=== PATIENT | male | born 1950 | race Caucasian/White ===

== ENCOUNTER 2019-01-09 13:51 | Inpatient (IN) | payer BC, MEDICARE ==
[2019-01-04 11:35] LABS: BASOPHILS % (AUTO) 0.4 % (0-1); EOSINOPHILS # (AUTO) 0.4 X10'3 (0-0.9); EOSINOPHILS % (AUTO) 7.1 % (0-6); HEMATOCRIT 44.4 % (42.0-52.0); HEMOGLOBIN 15.2 g/dl (14.0-17.9); LYMPHOCYTES # (AUTO) 0.9 X10'3 (1.1-4.8); LYMPHOCYTES % (AUTO) 17.5 % (21-51); MEAN CORPUSCULAR HEMOGLOBIN 28.1 PG (27.0-31.0); MEAN CORPUSCULAR HGB CONC 34.2 g/dL (33.0-36.5); MEAN CORPUSCULAR VOLUME 82.3 FL (78-98); MEAN PLATELET VOLUME 7.7 FL (7.4-10.4); MONOCYTES # (AUTO) 0.6 X10'3 (0-0.9); MONOCYTES % (AUTO) 11.5 % (2-12); NEUTROPHILS # (AUTO) 3.2 X10'3 (1.8-7.7); NEUTROPHILS % (AUTO) 63.5 % (42-75); PLATELET COUNT 175 X10'3 (140-440); WHITE BLOOD COUNT 5.1 X10'3 (4.5-11.0)
[2019-01-04 11:40] LABS: ALBUMIN 3.8 G/DL (3.4-5.0); ANION GAP 7 (8-16); BLOOD UREA NITROGEN 11 MG/DL (7-18); BUN/CREATININE RATIO 13.9 (5.4-32.0); CHLORIDE 107 MMOL/L (99-107); CREATININE 0.79 MG/DL (0.60-1.10); GLUCOSE 92 MG/DL (70-104); POTASSIUM 4.3 MMOL/L (3.5-5.1); SODIUM 142 MMOL/L (135-145); TOTAL CARBON DIOXIDE 28.4 MMOL/L (24-32); eGFR > 90 ML/MIN
[2019-01-04 11:51] LABS: PARTIAL THROMBOPLASTIN TIME 33 SECONDS (22-32)
[2019-01-09] VITALS (10 sets, daily range): BP systolic 138–172; BP diastolic 56–97
[~2019-01-09] VITALS: Ht 175.3 cm; Wt 97.0 kg
[~2019-01-09 13:51] MED LIST: AMLO10TA PO; ESOM20CA PO; LOSA100T57 PO; MONT10TA24 PO
[2019-01-09] MEDS ORDERED: LORazepam 0.5 MG tablet PO ONE (14:15)
[2019-01-09] MEDS ORDERED: diphenhydrAMINE 25mg capsule PO ONE (14:15)
[2019-01-09] MEDS ORDERED: ASPI81TA52 PO (14:32)
[2019-01-09] MEDS ORDERED: METO50TA17 PO (14:34)
[2019-01-09] MEDS ORDERED: METO-384 PO (14:35)
[2019-01-09] MEDS: normal saline 1000ml 1,000 ML IV SCH ×2 (15:19→21:37)
[2019-01-09] MEDS ORDERED: LIDOcaine 1% (10mg/ml)w/preservative injection 20ml MDV ONE (16:04)
[2019-01-09] MEDS ORDERED: midazolam 2 mg/2 ml injection ONE (16:04)
[2019-01-09] MEDS ORDERED: fentaNYL/PF 50MCG/1 ML 2ML syringe ONE (16:04)
[2019-01-09] MEDS ORDERED: iohexol 350MG/ML 100ml bottle IV ONE (16:04)
[2019-01-09] MEDS ORDERED: mag hydrox/Alum hydrox/simeth 30ml oral suspension PO PRN (19:50)
[2019-01-09] MEDS ORDERED: temazepam 15mg capsule PO PRN (19:50)
[2019-01-09] MEDS ORDERED: ondansetron/PF 4mg/2ml inj IV PRN (19:50)
[2019-01-09] MEDS ORDERED: HYDROcodone/acetaminophen 10/325mg tab PO PRN (19:50)
[2019-01-09] MEDS ORDERED: acetaminophen 325mg tablet PO PRN (19:50)
[2019-01-09] MEDS ORDERED: magnesium hydroxide 30ml (MOM) UD suspension PO PRN (19:50)
[2019-01-09] MEDS ORDERED: HYDROcodone/acetaminophen 5mg/325mg tablet PO PRN (19:50)
--- NOTE | 2019-01-09 19:50 | NUR ---
Patient in room MED 308. I have received report from PATEL Billy, and had the opportunity to ask questions and assume patient care.
[2019-01-09] MEDS ORDERED: heparin, porcine 5000 units/ml vial SQ SCH (20:00)
[2019-01-09] MEDS: metoprolol succinate 25mg (24-HOUR) SR. Tablet PO SCH (21:00)
[2019-01-09] MEDS ORDERED: non-formulary drug (Metoprolol Succinate 0.5 TAB) PO SCH (21:00)
[2019-01-10 02:00] VITALS: BP 113/64
[2019-01-10] MEDS ORDERED: proCHLORperazine 10 MG/2 ml inj IV PRN (03:55)
[2019-01-10] MEDS ORDERED: OXAZEpam 15mg capsule PO PRN (03:55)
[2019-01-10 04:41] LABS: BASOPHILS % (AUTO) 0.3 % (0-1); EOSINOPHILS # (AUTO) 0.4 X10'3 (0-0.9); EOSINOPHILS % (AUTO) 6.8 % (0-6); HEMATOCRIT 41.5 % (42.0-52.0); HEMOGLOBIN 13.9 g/dl (14.0-17.9); LYMPHOCYTES # (AUTO) 0.7 X10'3 (1.1-4.8); LYMPHOCYTES % (AUTO) 11.3 % (21-51); MEAN CORPUSCULAR HEMOGLOBIN 27.9 PG (27.0-31.0); MEAN CORPUSCULAR HGB CONC 33.6 g/dL (33.0-36.5); MEAN CORPUSCULAR VOLUME 83.2 FL (78-98); MEAN PLATELET VOLUME 7.6 FL (7.4-10.4); MONOCYTES # (AUTO) 0.7 X10'3 (0-0.9); MONOCYTES % (AUTO) 10.8 % (2-12); NEUTROPHILS # (AUTO) 4.3 X10'3 (1.8-7.7); NEUTROPHILS % (AUTO) 70.8 % (42-75); PLATELET COUNT 147 X10'3 (140-440); RED BLOOD COUNT 4.99 X10'6 (4.70-6.10); RED CELL DISTRIBUTION WIDTH 14.3 % (11.5-14.5); WHITE BLOOD COUNT 6.1 X10'3 (4.5-11.0)
[2019-01-10 04:44] LABS: HEMOGLOBIN A1C 5.6 % (4.5-6.2)
[2019-01-10 04:53] LABS: ALANINE AMINOTRANSFERASE 25 U/L (12-78); ALBUMIN 3.2 G/DL (3.4-5.0); ALBUMIN/GLOBULIN RATIO 1.1 (1.1-1.5); ALKALINE PHOSPHATASE 67 IU/L (46-116); ANION GAP 9 (8-16); ASPARTATE AMINO TRANSFERASE 10 U/L (10-37); BILIRUBIN,TOTAL 0.8 MG/DL (0.1-1.0); BLOOD UREA NITROGEN 10 MG/DL (7-18); BUN/CREATININE RATIO 12.8 (5.4-32.0); CHLORIDE 109 MMOL/L (99-107); CHOL/HDL RATIO 6.8 (0.00-4.99); CHOLESTEROL 196 MG/DL (0-200); CREATININE 0.78 MG/DL (0.60-1.10); GLUCOSE 102 MG/DL (70-104); HDL CHOLESTEROL 29 MG/DL (35-60); LDL CHOLESTEROL 143 MG/DL (50-100); SODIUM 143 MMOL/L (135-145); TOTAL CARBON DIOXIDE 25.2 MMOL/L (24-32); TOTAL PROTEIN 6.2 G/DL (6.4-8.2); TRIGLYCERIDES 193 MG/DL (20-135); eGFR > 90 ML/MIN
--- NOTE | 2019-01-10 06:00 | NUR ---
Problems reprioritized. Patient report given, questions answered & plan of care reviewed with PATEL Cuadra.
[2019-01-10 06:30] VITALS: BP 129/67
[2019-01-10] MEDS ORDERED: non-formulary drug (Losartan Potassium 1 TAB) PO SCH (08:00)
[2019-01-10] MEDS ORDERED: losartan 50mg tablet PO SCH ×2 (08:00→20:00)
[2019-01-10] MEDS ORDERED: aspirin 81mg tablet.DR PO SCH (08:00)
[2019-01-10] MEDS ORDERED: atorvastatin 20mg tablet PO SCH (08:00)
--- NOTE | 2019-01-10 08:32 | NUR ---
Dr. Gomez into see patient . PATRICIA order change to 50mg bid; gave only 50mg Po this am after speaking to patient regarding his medication regime. Addendum: 01/10/19 at 0842 by Kalyn Bueno RN Amended: Links added.
[2019-01-10] MEDS ORDERED: insulin glargine (Lantus) pen - multi-dose SQ PRN (08:35)
[2019-01-10] MEDS ORDERED: MESSAGE TO NURSING PO ONE ×2 (08:35→10:00)
[2019-01-10] MEDS ORDERED: dextrose 50%-water 50ml dispensing syringe IV PRN (08:35)
[2019-01-10] MEDS: normal saline 1000ml 1,000 ML IV SCH ×2 (10:15→14:43)
[2019-01-10 10:34] LABS: HEMATOCRIT 43.8 % (42.0-52.0); HEMOGLOBIN 14.7 g/dl (14.0-17.9); MEAN CORPUSCULAR HEMOGLOBIN 27.9 PG (27.0-31.0); MEAN CORPUSCULAR HGB CONC 33.6 g/dL (33.0-36.5); MEAN CORPUSCULAR VOLUME 83.2 FL (78-98); MEAN PLATELET VOLUME 7.7 FL (7.4-10.4); PLATELET COUNT 159 X10'3 (140-440); RED BLOOD COUNT 5.27 X10'6 (4.70-6.10); RED CELL DISTRIBUTION WIDTH 14.4 % (11.5-14.5)
[2019-01-10 10:45] LABS: PARTIAL THROMBOPLASTIN TIME 33 SECONDS (22-32)
[2019-01-10 10:50] LABS: ALANINE AMINOTRANSFERASE 25 U/L (12-78); ALBUMIN 3.4 G/DL (3.4-5.0); ALKALINE PHOSPHATASE 75 IU/L (46-116); ANION GAP 7 (8-16); ASPARTATE AMINO TRANSFERASE 15 U/L (10-37); BILIRUBIN,TOTAL 0.9 MG/DL (0.1-1.0); BLOOD UREA NITROGEN 10 MG/DL (7-18); BUN/CREATININE RATIO 13.5 (5.4-32.0); CALCIUM 8.5 MG/DL (8.5-10.1); CHLORIDE 109 MMOL/L (99-107); CREATININE 0.74 MG/DL (0.60-1.10); GLUCOSE 133 MG/DL (70-104); POTASSIUM 3.8 MMOL/L (3.5-5.1); SODIUM 143 MMOL/L (135-145); TOTAL CARBON DIOXIDE 27.3 MMOL/L (24-32); TOTAL PROTEIN 6.7 G/DL (6.4-8.2); eGFR > 90 ML/MIN
[2019-01-10 11:00] VITALS: BP 154/76
--- NOTE | 2019-01-10 13:24 | NUR ---
PAGED RT "RE: 308- NEED PFT AND ABG FOR THIS PATIENT HE IS GOING TO 1ST CASE CABG TOMORROW. THANKS, TAMMIE BROWER [id number]"
[2019-01-10 15:00] VITALS: BP 142/77
[2019-01-10 15:50] LABS: ABG BASE EXCESS 1.2 mmol/L (-2.0-3.0); ABG OXYGEN SATURATION 96.1 % (95-98); ABG PO2 (T) 78.4 mmHg (83-108); ALLEN'S TEST Positive; FCOHb 0.3 % (0.5-1.5); FMetHb 0.2 % (0.3-1.12); FO2Hb 95.6 % (94-100); TOTAL HEMOGLOBIN 15.3 G/dl (14.0-17.9)
[2019-01-10 18:00] VITALS: BP 180/87
--- NOTE | 2019-01-10 18:00 | NUR ---
Patient in room MED 308. I have received report from PATEL Cuadra, and had the opportunity to ask questions and assume patient care.
[2019-01-10] MEDS ORDERED: metoprolol tartrate 12.5mg (1/2 tablet) PO SCH (20:00)
--- NOTE | 2019-01-10 20:01 | NUR ---
Contacted Dr. Gomez regarding Toprol (sustained release metoprolol) since pt has low heart rates in the 60's and he is getting a CABG in the morning. Per Dr. Gomez, hold Toprol, give regular Metoprolol 25 mg in the morning.
[2019-01-10] MEDS: metoprolol succinate 25mg (24-HOUR) SR. Tablet PO SCH (20:04)
[2019-01-10] MEDS: mupirocin 2% nasal ointment 1gm UD NS SCH (20:29)
[2019-01-10 22:00] VITALS: BP 145/66
[2019-01-11] VITALS (19 sets, daily range): BP systolic 109–146; BP diastolic 51–94
[2019-01-11] MEDS ORDERED: MESSAGE TO NURSING PO ONE ×3 (01:00→05:00)
[2019-01-11] MEDS: mupirocin 2% nasal ointment 1gm UD NS SCH ×3 (04:15→20:14)
[2019-01-11] MEDS ORDERED: NUT.TX.IMPAIRED DIGEST FXN (Ensure Clear) 237 ML PO ONE (05:00)
[2019-01-11] MEDS ORDERED: ROPIVAcaine 0.5% (5mg/ml) 30ml vial ONE (05:09)
[2019-01-11] MEDS ORDERED: gabapentin 400mg capsule PO ONE (05:30)
[2019-01-11] MEDS ORDERED: vancomycin/NS 1 GM ADD-VANTAGE 250 ML IV ONE (05:30)
[2019-01-11] MEDS ORDERED: insulin regular, human 100 UNIT in normal saline 100ml IV soln 100 ML IV SCH ×2 (05:30)
[2019-01-11] MEDS ORDERED: cefazolin/dext.iso 2gm/50ml 50 ML IV ONE (05:30)
[2019-01-11 05:57] LABS: BASOPHILS % (AUTO) 0.3 % (0-1); EOSINOPHILS # (AUTO) 0.4 X10'3 (0-0.9); EOSINOPHILS % (AUTO) 5.9 % (0-6); HEMATOCRIT 45.1 % (42.0-52.0); HEMOGLOBIN 15.4 g/dl (14.0-17.9); LYMPHOCYTES # (AUTO) 0.7 X10'3 (1.1-4.8); LYMPHOCYTES % (AUTO) 11.8 % (21-51); MEAN CORPUSCULAR HEMOGLOBIN 28.4 PG (27.0-31.0); MEAN CORPUSCULAR HGB CONC 34.1 g/dL (33.0-36.5); MEAN CORPUSCULAR VOLUME 83.1 FL (78-98); MEAN PLATELET VOLUME 7.9 FL (7.4-10.4); MONOCYTES # (AUTO) 0.5 X10'3 (0-0.9); MONOCYTES % (AUTO) 7.8 % (2-12); NEUTROPHILS # (AUTO) 4.6 X10'3 (1.8-7.7); NEUTROPHILS % (AUTO) 74.2 % (42-75); PLATELET COUNT 168 X10'3 (140-440); RED BLOOD COUNT 5.43 X10'6 (4.70-6.10); RED CELL DISTRIBUTION WIDTH 14.3 % (11.5-14.5); WHITE BLOOD COUNT 6.1 X10'3 (4.5-11.0)
[2019-01-11] MEDS ORDERED: LORazepam 2 mg/ml vial IV ONE (06:00)
[2019-01-11] MEDS ORDERED: metoprolol tartrate 25mg tablet PO ONE (06:00)
[2019-01-11] MEDS ORDERED: famotidine 20mg tablet PO ONE (06:00)
--- NOTE | 2019-01-11 06:00 | NUR ---
Problems reprioritized. Patient report given, questions answered & plan of care reviewed with PATEL Tejada.
--- NOTE | 2019-01-11 06:05 | NUR ---
Patient in room MED 308. I have received report from Anne Marie SWEENEY and had the opportunity to ask questions and assume patient care.
[2019-01-11 06:11] LABS: ALANINE AMINOTRANSFERASE 26 U/L (12-78); ALBUMIN 3.7 G/DL (3.4-5.0); ALBUMIN/GLOBULIN RATIO 1.1 (1.1-1.5); ALKALINE PHOSPHATASE 80 IU/L (46-116); ANION GAP 8 (8-16); ASPARTATE AMINO TRANSFERASE 10 U/L (10-37); BILIRUBIN,TOTAL 0.9 MG/DL (0.1-1.0); BLOOD UREA NITROGEN 11 MG/DL (7-18); BUN/CREATININE RATIO 13.1 (5.4-32.0); CALCIUM 8.9 MG/DL (8.5-10.1); CHLORIDE 107 MMOL/L (99-107); CREATININE 0.84 MG/DL (0.60-1.10); GLUCOSE 209 MG/DL (70-104); POTASSIUM 3.8 MMOL/L (3.5-5.1); SODIUM 141 MMOL/L (135-145); TOTAL PROTEIN 7.2 G/DL (6.4-8.2); eGFR > 90 ML/MIN
--- NOTE | 2019-01-11 06:40 | NUR ---
Patient left unit at this unit for CABG, administered 2 mg Ativan IV, pepcid po, metoprolol po.
[2019-01-11] MEDS ORDERED: protamine sulf. 10mg/ml inj. IV ONE (06:41)
[2019-01-11] MEDS ORDERED: nitroGLYCERIN in D5W 50mg/250ml (Tridil) infusion IV ONE (06:41)
[2019-01-11] MEDS ORDERED: sevoflurane 250ml liquid IH ONE (06:41)
[2019-01-11] MEDS ORDERED: ACETYLCYSTEINE 200 MG/1 ML IV ONE (06:41)
[2019-01-11] MEDS ORDERED: niCARDipine in NS 40mg/200ml (0.2mg/ml) IVPB IV ONE (06:41)
[2019-01-11] MEDS ORDERED: midazolam 2 mg/2 ml injection ONE ×2 (06:46)
[2019-01-11] MEDS ORDERED: SUFENTANIL CITRATE 50 MCG/ML 2ml ampule IV ONE (06:53)
[2019-01-11] MEDS ORDERED: propofol inj 20 ML IV ONE (06:54)
[2019-01-11] MEDS ORDERED: rocuronium 10mg/ml inj IV ONE ×2 (06:54)
[2019-01-11 07:31] LABS: ABG BASE EXCESS -1.1 mmol/L (-2.0-3.0); ABG HCO3 23.5 mmol/L (22.0-26.0); ABG OXYGEN SATURATION 95.2 % (95-98); ABG PCO2 39.4 mmHg (35.0-45.0); ABG PH 7.394 (7.350-7.450); ABG PO2 74.2 mmHg (60.0-100.0); CL (ABG) 105 mmol/L (99-107); FCOHb 1.1 % (0.5-1.5); FMetHb 0.2 % (0.3-1.12); GLUCOSE (ABG) 126 mg/dl (70-104); IONIZED CA (ABG) 1.18 mmol/L (1.03-1.32); K (ABG) 3.9 mmol/L (3.3-5.1); NA (ABG) 141 mmol/L (135-145); TOTAL HEMOGLOBIN 14.5 G/dl (14.0-17.9)
[2019-01-11 08:36] LABS: ACT @ 1.70 U 279 SEC (193-297); ACT @ 2.84 U 453 SEC (260-420); BASELINE ACT 140 SEC (101-148)
[2019-01-11 08:51] LABS: ABG HCO3 23.5 mmol/L (22.0-26.0); ABG OXYGEN SATURATION 98.7 % (95-98); ABG PCO2 43.3 mmHg (35.0-45.0); ABG PH 7.353 (7.350-7.450); ABG PO2 156.6 mmHg (60.0-100.0); CL (ABG) 104 mmol/L (99-107); FCOHb 0.5 % (0.5-1.5); FMetHb 0.2 % (0.3-1.12); GLUCOSE (ABG) 117 mg/dl (70-104); IONIZED CA (ABG) 1.06 mmol/L (1.03-1.32); K (ABG) 5.4 mmol/L (3.3-5.1); NA (ABG) 137 mmol/L (135-145); TOTAL HEMOGLOBIN 11.8 G/dl (14.0-17.9)
[2019-01-11] MEDS ORDERED: LIDOcaine 2% (20 mg/ml) 5ml cardiac syringe ONE (09:00)
[2019-01-11] MEDS ORDERED: papaverine 30 mg/ml 2ml inj. ONE (09:00)
[2019-01-11] MEDS ORDERED: heparin 10,000 units/1 ML INJ ONE ×2 (09:00)
[2019-01-11] MEDS ORDERED: MAGNESIUM SULFATE 4 MEQ/ML (5gm/10ml) injection ONE (09:00)
[2019-01-11] MEDS ORDERED: methylPREDNISolone sod. succ. 500mg inj ONE (09:00)
[2019-01-11] MEDS ORDERED: heparin 1,000 units/ml 10ml inj ONE (09:00)
[2019-01-11] MEDS ORDERED: albumin (human) 25% 100 ML IV solution IV ONE (09:00)
[2019-01-11] MEDS ORDERED: calcium chloride 100 MG/1 ML inj IV ONE (09:00)
[2019-01-11] MEDS ORDERED: phenylephrine 10mg/ml inj. ONE (09:00)
[2019-01-11] MEDS ORDERED: potassium Cl 2 mEq/ml inj IV ONE (09:00)
[2019-01-11] MEDS ORDERED: sodium bicarbonate (8.4%) 1 mEq/ml syringe ONE (09:00)
[2019-01-11] MEDS ORDERED: aminocaproic acid 250 MG/1 ML inj. ONE (09:00)
[2019-01-11 09:20] LABS: ABG BASE EXCESS VENOUS -2.8 mmol/L; ABG HCO3 VENOUS 22.7 mmol/L; ABG PCO2 VENOUS 42.5 mmHg; ABG PO2 VENOUS 49.4 mmHg; CL (ABG) 104 mmol/L (99-107); FCOHb VENOUS 1.1 %; FMetHb VENOUS 0.2 %; FO2Hb VENOUS 82.7 %; GLUCOSE (ABG) 127 mg/dl (70-104); IONIZED CA (ABG) 1.07 mmol/L (1.03-1.32); K (ABG) 5.2 mmol/L (3.3-5.1); NA (ABG) 138 mmol/L (135-145)
[2019-01-11 09:55] LABS: ABG HCO3 23.5 mmol/L (22.0-26.0); ABG PCO2 34.4 mmHg (35.0-45.0); ABG PH 7.453 (7.350-7.450); ABG PO2 233.3 mmHg (60.0-100.0); CL (ABG) 103 mmol/L (99-107); FCOHb 0.3 % (0.5-1.5); FMetHb 0.2 % (0.3-1.12); FO2Hb 98.5 % (94-100); GLUCOSE (ABG) 120 mg/dl (70-104); IONIZED CA (ABG) 1.19 mmol/L (1.03-1.32); NA (ABG) 137 mmol/L (135-145); TOTAL HEMOGLOBIN 11.2 G/dl (14.0-17.9)
[2019-01-11 10:21] LABS: ABG BASE EXCESS VENOUS 0.4 mmol/L; ABG HCO3 VENOUS 25.6 mmol/L; ABG PCO2 VENOUS 43.5 mmHg; ABG PO2 VENOUS 34.6 mmHg; CL (ABG) 104 mmol/L (99-107); FCOHb VENOUS 0.9 %; FHHb VENOUS 31.2 %; FMetHb VENOUS 0.4 %; FO2Hb VENOUS 67.5 %; GLUCOSE (ABG) 130 mg/dl (70-104); IONIZED CA (ABG) 1.22 mmol/L (1.03-1.32); K (ABG) 4.9 mmol/L (3.3-5.1); NA (ABG) 138 mmol/L (135-145); TOTAL HEMOGLOBIN 11.5 G/dl (14.0-17.9)
[2019-01-11] MEDS ORDERED: acetaminophen 1,000mg/100ml IV 100 ML IV ONE (10:24)
[2019-01-11] MEDS ORDERED: albumin (Human) 5% 250ml 250 ML IV ONE (10:34)
[2019-01-11] MEDS ORDERED: nitroGLYCERIN-Tridil 50MG/D5W 250 ML IV PRN (10:51)
[2019-01-11] MEDS ORDERED: DOPamine 400mg/D5W 250ml 250 ML IV PRN (10:51)
[2019-01-11] MEDS ORDERED: niCARDipine-NS 40mg/200ml IVPB 200 ML IV PRN (10:51)
[2019-01-11] MEDS ORDERED: normal saline 250ml IV soln 250 ML IV PRN (10:55)
[2019-01-11] MEDS ORDERED: magnesium hydroxide 30ml (MOM) UD suspension PO PRN (10:55)
[2019-01-11] MEDS ORDERED: potassium Cl 20 mEq SR tablet PO PRN (10:55)
[2019-01-11] MEDS ORDERED: metoclopramide 5 mg/ml inj IV PRN (10:55)
[2019-01-11] MEDS ORDERED: acetaminophen 325mg tablet PO PRN (10:55)
[2019-01-11] MEDS ORDERED: insulin regular, human inj. 100 UNITS in normal saline 100ml IV soln 100 ML IV SCH ×2 (10:55)
[2019-01-11] MEDS ORDERED: sodium phosphate inj. 30 MMOL in dextrose 5%-water 250 ML IV PRN (10:55)
[2019-01-11] MEDS ORDERED: sodium phosphate inj. 15 MMOL in dextrose 5%-water 150 ML IV PRN (10:55)
[2019-01-11] MEDS ORDERED: pantoprazole 40 MG vial IV ONE (10:55)
[2019-01-11] MEDS ORDERED: Neutra Phos packet PO PRN (10:55)
[2019-01-11] MEDS ORDERED: morphine 4 MG/ML inj SYRINge IV PRN (10:55)
[2019-01-11] MEDS ORDERED: magnesium 4gm in 100ml NS 100 ML IV PRN (10:55)
[2019-01-11] MEDS ORDERED: dextrose 50%-water 50ml dispensing syringe IV PRN (10:55)
--- NOTE | 2019-01-11 11:15 | NUR ---
Received to room 2045, accompanied by DR Gomez and surgical crew. Placed on ventilator, to hospital monitor, arterial line and PA line pressure monitored. Chest tubes to suction at 20 cm. Keita cath to gravity drainage. Dressings are dry and intact. See assessment record. All vasoactive drugs are infusing via central line.
[2019-01-11 11:16] LABS: ABG BASE EXCESS -0.5 mmol/L (-2.0-3.0); ABG HCO3 23.7 mmol/L (22.0-26.0); ABG OXYGEN SATURATION 97.1 % (95-98); ABG PCO2 (T) 35.8 mmHg (35.0-45.0); ABG PH (T) 7.434 (7.350-7.450); ABG PO2 (T) 91.5 mmHg (83-108); FMetHb 0.2 % (0.3-1.12); FO2Hb 96.9 % (94-100); MINUTE VOLUME 8 L/min; PATIENT TEMPERATURE 35.9; PEEP 5 cm H2O; RESPIRATORY RATE 12 b/min; RESPIRATORY RATE (OBSERVED) 12 b/min; TIDAL VOLUME 600 mL; TOTAL HEMOGLOBIN 13.2 G/dl (14.0-17.9)
[2019-01-11 11:33] LABS: BASOPHILS % (AUTO) 0.1 % (0-1); EOSINOPHILS # (AUTO) 0.1 X10'3 (0-0.9); EOSINOPHILS % (AUTO) 1.5 % (0-6); HEMATOCRIT 36.6 % (42.0-52.0); HEMOGLOBIN 12.4 g/dl (14.0-17.9); LYMPHOCYTES # (AUTO) 0.5 X10'3 (1.1-4.8); LYMPHOCYTES % (AUTO) 5.6 % (21-51); MEAN CORPUSCULAR HEMOGLOBIN 28.3 PG (27.0-31.0); MEAN CORPUSCULAR VOLUME 83.2 FL (78-98); MEAN PLATELET VOLUME 7.5 FL (7.4-10.4); MONOCYTES # (AUTO) 0.5 X10'3 (0-0.9); MONOCYTES % (AUTO) 5.6 % (2-12); NEUTROPHILS # (AUTO) 7.8 X10'3 (1.8-7.7); NEUTROPHILS % (AUTO) 87.2 % (42-75); PLATELET COUNT 126 X10'3 (140-440); RED CELL DISTRIBUTION WIDTH 13.8 % (11.5-14.5); WHITE BLOOD COUNT 8.9 X10'3 (4.5-11.0)
[2019-01-11 11:47] LABS: ALANINE AMINOTRANSFERASE 23 U/L (12-78); ALBUMIN 3.2 G/DL (3.4-5.0); ALBUMIN/GLOBULIN RATIO 1.5 (1.1-1.5); ALKALINE PHOSPHATASE 46 IU/L (46-116); ANION GAP 7 (8-16); ASPARTATE AMINO TRANSFERASE 24 U/L (10-37); BLOOD UREA NITROGEN 10 MG/DL (7-18); CALCIUM 8.1 MG/DL (8.5-10.1); CHLORIDE 112 MMOL/L (99-107); CREATININE 0.83 MG/DL (0.60-1.10); GLUCOSE 135 MG/DL (70-104); MAGNESIUM 3.2 MG/DL (1.5-2.4); PHOSPHORUS 1.6 MG/DL (2.3-4.5); POTASSIUM 4.3 MMOL/L (3.5-5.1); SODIUM 145 MMOL/L (135-145); TOTAL CARBON DIOXIDE 26.3 MMOL/L (24-32); TOTAL PROTEIN 5.3 G/DL (6.4-8.2); eGFR > 90 ML/MIN
[2019-01-11] MEDS: sodium chloride 0.45% 1,000 ML IV SCH (11:57)
[2019-01-11 12:23] LABS: PARTIAL THROMBOPLASTIN TIME 35 SECONDS (22-32)
[2019-01-11] MEDS: potassium Cl 20mEq/100mL bag 100 ML IV PRN ×4 (12:32→19:06)
[2019-01-11] MEDS: insulin Lispro (HumaLOG) vial - multi-dose SQ SCH ×2 (12:35→18:00)
--- NOTE | 2019-01-11 12:36 | NUR ---
Nutrition consult: Pt s/p CABG x 4 today, will need nutrition therapy education prior to discharge once stable. Addendum: 01/11/19 at [address] Amended: Links added.
[2019-01-11 13:15] LABS: ACTIVATED CLOTTING TIME 131 SEC (101-148)
[2019-01-11] MEDS: gabapentin 300mg capsule PO SCH ×2 (13:25→20:15)
[2019-01-11] MEDS: albumin (Human) 5% 250ml 250 ML IV PRN ×2 (15:05→21:09)
[2019-01-11] MEDS: ceFAZolin 1GM/D5W- ADD-VANTAGE 50 ML IV SCH (15:25)
[2019-01-11 16:36] LABS: ABG BASE EXCESS -1.9 mmol/L (-2.0-3.0); ABG HCO3 22.8 mmol/L (22.0-26.0); ABG OXYGEN SATURATION 94.2 % (95-98); ABG PCO2 (T) 38.2 mmHg (35.0-45.0); ABG PH (T) 7.393 (7.350-7.450); ABG PO2 (T) 73.4 mmHg (83-108); FCOHb 0.2 % (0.5-1.5); FMetHb 0.3 % (0.3-1.12); FO2Hb 93.7 % (94-100); MINUTE VOLUME 8 L/min; PATIENT TEMPERATURE 36.8; PEEP 5 cm H2O; RESPIRATORY RATE (OBSERVED) 14 b/min; TOTAL HEMOGLOBIN 13.4 G/dl (14.0-17.9)
[2019-01-11] MEDS: morphine 4 MG/ML inj SYRINge IV PRN ×4 (16:48→22:32)
--- NOTE | 2019-01-11 16:57 | NUR ---
pt is intubated, drowsy but arousable, calm, follows verbal commands, extubated pt with RT at 1645, 3L NC applied and in use. pt c/o pain to chest, pain meds given for pain relief per MD order. updated family on plan of care.
[2019-01-11 17:16] LABS: BASOPHILS % (AUTO) 0 % (0-1); EOSINOPHILS % (AUTO) 0.1 % (0-6); HEMATOCRIT 36.6 % (42.0-52.0); HEMOGLOBIN 12.3 g/dl (14.0-17.9); LYMPHOCYTES # (AUTO) 0.4 X10'3 (1.1-4.8); MEAN CORPUSCULAR HEMOGLOBIN 28.3 PG (27.0-31.0); MEAN CORPUSCULAR HGB CONC 33.8 g/dL (33.0-36.5); MEAN CORPUSCULAR VOLUME 83.7 FL (78-98); MEAN PLATELET VOLUME 7.6 FL (7.4-10.4); MONOCYTES # (AUTO) 0.3 X10'3 (0-0.9); MONOCYTES % (AUTO) 2.3 % (2-12); NEUTROPHILS # (AUTO) 11.5 X10'3 (1.8-7.7); NEUTROPHILS % (AUTO) 94.6 % (42-75); PLATELET COUNT 120 X10'3 (140-440); RED BLOOD COUNT 4.37 X10'6 (4.70-6.10); RED CELL DISTRIBUTION WIDTH 14.3 % (11.5-14.5); WHITE BLOOD COUNT 12.1 X10'3 (4.5-11.0)
[2019-01-11 17:27] LABS: ALBUMIN 3.4 G/DL (3.4-5.0); ANION GAP 8 (8-16); BLOOD UREA NITROGEN 11 MG/DL (7-18); BUN/CREATININE RATIO 12.5 (5.4-32.0); CHLORIDE 113 MMOL/L (99-107); CREATININE 0.88 MG/DL (0.60-1.10); GLUCOSE 158 MG/DL (70-104); MAGNESIUM 2.2 MG/DL (1.5-2.4); PHOSPHORUS 3.2 MG/DL (2.3-4.5); SODIUM 146 MMOL/L (135-145); TOTAL CARBON DIOXIDE 24.6 MMOL/L (24-32); eGFR 86 ML/MIN
--- NOTE | 2019-01-11 18:25 | NUR ---
Problems reprioritized. Patient report given, questions answered & plan of care reviewed with PATEL Lees.
--- NOTE | 2019-01-11 18:35 | NUR ---
Patient in room ICU 2045. I have received report from Bebe SWEENEY and had the opportunity to ask questions and assume patient care.
[2019-01-11] MEDS: vancomycin/NS 1 GM ADD-VANTAGE 250 ML IV SCH (20:14)
[2019-01-11] MEDS: docusate sod 100mg capsule PO SCH (20:15)
[2019-01-11] MEDS: HYDROcodone/acetaminophen 10/325mg tab PO PRN (21:08)
[2019-01-11] MEDS: magnesium 2GM in 50ml NS 50 ML IV PRN (21:14)
--- NOTE | 2019-01-11 21:22 | NUR ---
pt continues to be very painful, rating pain around 8-9 despite receiving morphine several times since start of shift. norco given at this time to attempt to help with pain. 1 norco given instead of 2 despite severe pain because pt has a mostly empty stomach and has not received norco prior. continue to monitor.
[2019-01-12] VITALS (24 sets, daily range): BP systolic 97–175; BP diastolic 51–76
[2019-01-12] MEDS: morphine 4 MG/ML inj SYRINge IV PRN ×3 (00:14→05:04)
[2019-01-12] MEDS: ceFAZolin 1GM/D5W- ADD-VANTAGE 50 ML IV SCH ×4 (00:17→23:56)
[2019-01-12 01:22] LABS: PHOSPHORUS 3.5 MG/DL (2.3-4.5); POTASSIUM 4.4 MMOL/L (3.5-5.1)
[2019-01-12] MEDS: potassium Cl 20mEq/100mL bag 100 ML IV PRN (01:52)
[2019-01-12] MEDS: HYDROcodone/acetaminophen 10/325mg tab PO PRN ×5 (02:05→23:58)
[2019-01-12 04:34] LABS: BASOPHILS % (AUTO) 0.1 % (0-1); EOSINOPHILS % (AUTO) 0 % (0-6); HEMOGLOBIN 11.2 g/dl (14.0-17.9); LYMPHOCYTES # (AUTO) 0.6 X10'3 (1.1-4.8); LYMPHOCYTES % (AUTO) 4.4 % (21-51); MEAN CORPUSCULAR HEMOGLOBIN 27.9 PG (27.0-31.0); MEAN CORPUSCULAR HGB CONC 33.8 g/dL (33.0-36.5); MEAN CORPUSCULAR VOLUME 82.7 FL (78-98); MEAN PLATELET VOLUME 7.6 FL (7.4-10.4); MONOCYTES # (AUTO) 0.8 X10'3 (0-0.9); NEUTROPHILS # (AUTO) 11.8 X10'3 (1.8-7.7); NEUTROPHILS % (AUTO) 89.5 % (42-75); PLATELET COUNT 122 X10'3 (140-440); RED BLOOD COUNT 3.99 X10'6 (4.70-6.10); RED CELL DISTRIBUTION WIDTH 14.1 % (11.5-14.5); WHITE BLOOD COUNT 13.2 X10'3 (4.5-11.0)
[2019-01-12 04:41] LABS: PARTIAL THROMBOPLASTIN TIME 29 SECONDS (22-32)
[2019-01-12 04:43] LABS: ALANINE AMINOTRANSFERASE 29 U/L (12-78); ALBUMIN 3.4 G/DL (3.4-5.0); ALBUMIN/GLOBULIN RATIO 1.6 (1.1-1.5); ALKALINE PHOSPHATASE 49 IU/L (46-116); ANION GAP 7 (8-16); ASPARTATE AMINO TRANSFERASE 30 U/L (10-37); BILIRUBIN,TOTAL 0.7 MG/DL (0.1-1.0); BLOOD UREA NITROGEN 12 MG/DL (7-18); BUN/CREATININE RATIO 18.2 (5.4-32.0); CALCIUM 7.6 MG/DL (8.5-10.1); CHLORIDE 112 MMOL/L (99-107); CREATININE 0.66 MG/DL (0.60-1.10); GLUCOSE 153 MG/DL (70-104); MAGNESIUM 2.3 MG/DL (1.5-2.4); PHOSPHORUS 3.2 MG/DL (2.3-4.5); POTASSIUM 4.7 MMOL/L (3.5-5.1); SODIUM 143 MMOL/L (135-145); TOTAL CARBON DIOXIDE 24.1 MMOL/L (24-32); TOTAL PROTEIN 5.5 G/DL (6.4-8.2); eGFR > 90 ML/MIN
--- NOTE | 2019-01-12 05:00 | NUR ---
pt stood at bedside at this time. he was able to walk several steps in place. did well. back in bed at this time.
[2019-01-12] MEDS ORDERED: ketorolac tromethamine 15mg/ml inj. IM ONE (05:25)
[2019-01-12] MEDS ORDERED: famotidine/PF 10 mg/ml inj IV ONE (05:25)
[2019-01-12] MEDS ORDERED: ketorolac tromethamine 15mg/ml inj. IV ONE (05:30)
--- NOTE | 2019-01-12 05:30 | NUR ---
pt has continued to be painful most of the night. he has slept very little. i called dr Gomez at 0520 regarding pain and also regarding stomach discomfort. dr gomez gave orders for Toradol and Pepcid. orders entered, continue to monitor.
--- NOTE | 2019-01-12 06:26 | NUR ---
Problems reprioritized. Patient report given, questions answered & plan of care reviewed with Romelia SWEENEY.
[2019-01-12] MEDS ORDERED: ketorolac tromethamine 15mg/ml inj. IV SCH (08:00)
[2019-01-12] MEDS ORDERED: metoprolol tartrate 12.5mg (1/2 tablet) PO SCH (08:00)
[2019-01-12] MEDS ORDERED: atorvastatin 10mg tablet PO SCH (08:00)
[2019-01-12] MEDS ORDERED: aspirin 325mg tablet, delayed-release (Ecotrin) PO SCH ×2 (08:00)
[2019-01-12] MEDS: ondansetron/PF 4mg/2ml inj IV PRN (08:37)
[2019-01-12] MEDS: metoprolol tartrate 12.5mg (1/2 tablet) PO SCH ×2 (08:39→19:19)
[2019-01-12] MEDS: atorvastatin 10mg tablet PO SCH (08:40)
[2019-01-12] MEDS: gabapentin 300mg capsule PO SCH ×3 (08:41→20:31)
[2019-01-12] MEDS: docusate sod 100mg capsule PO SCH ×2 (08:42→19:18)
[2019-01-12] MEDS: mupirocin 2% nasal ointment 1gm UD NS SCH ×2 (08:43→20:32)
[2019-01-12] MEDS: insulin Lispro (HumaLOG) vial - multi-dose SQ SCH (09:00)
[2019-01-12] MEDS: vancomycin/NS 1 GM ADD-VANTAGE 250 ML IV SCH ×2 (09:27→19:18)
[2019-01-12] MEDS: losartan 50mg tablet PO SCH ×2 (09:29→19:19)
[2019-01-12] MEDS: aspirin 81mg tablet.DR PO SCH (10:50)
[2019-01-12] MEDS: oxyCODONE IR 5mg (immed. release) tablet PO PRN ×2 (12:35→17:57)
[2019-01-12] MEDS: ketorolac tromethamine 15mg/ml inj. IV SCH ×2 (15:03→20:32)
--- NOTE | 2019-01-12 17:57 | NUR ---
Patient in a fib. Dr Gomez notified. Orders for margarita clement
[2019-01-12] MEDS ORDERED: amiodarone 150mg/dext, iso-os 100 ML IV ONE (18:00)
[2019-01-12] MEDS: amiodarone/D5 360MG/200ML BAG 200 ML IV SCH (18:17)
--- NOTE | 2019-01-12 18:34 | NUR ---
Patient in room ICU 2045. I have received report from Jabari SWEENEY and had the opportunity to ask questions and assume patient care.
--- NOTE | 2019-01-12 20:00 | NUR ---
around 1999 pt converted from afib back to SR with a rate 60-70's. frequent PAC's continue at this time. continue to monitor.
--- NOTE | 2019-01-12 21:30 | NUR ---
nitro was turned off around 2029. bp 130's via art line, and reading 110's via BP cuff. per Dr Gomez's note, art line DC'ed since pt off nitro drip. art line dc'ed around 2099. tolerated well. no complications. continue to monitor.
[2019-01-13] VITALS (24 sets, daily range): BP systolic 92–167; BP diastolic 43–82
[2019-01-13] MEDS: ketorolac tromethamine 15mg/ml inj. IV SCH ×3 (02:53→13:01)
[2019-01-13 03:26] LABS: BASOPHILS % (AUTO) 0.2 % (0-1); EOSINOPHILS % (AUTO) 0.1 % (0-6); HEMATOCRIT 29.7 % (42.0-52.0); HEMOGLOBIN 10.3 g/dl (14.0-17.9); LYMPHOCYTES # (AUTO) 0.7 X10'3 (1.1-4.8); LYMPHOCYTES % (AUTO) 6.7 % (21-51); MEAN CORPUSCULAR HEMOGLOBIN 29.2 PG (27.0-31.0); MEAN CORPUSCULAR HGB CONC 34.6 g/dL (33.0-36.5); MEAN CORPUSCULAR VOLUME 84.5 FL (78-98); MEAN PLATELET VOLUME 7.9 FL (7.4-10.4); MONOCYTES # (AUTO) 0.9 X10'3 (0-0.9); MONOCYTES % (AUTO) 9.2 % (2-12); NEUTROPHILS # (AUTO) 8.3 X10'3 (1.8-7.7); NEUTROPHILS % (AUTO) 83.8 % (42-75); PLATELET COUNT 103 X10'3 (140-440); RED BLOOD COUNT 3.52 X10'6 (4.70-6.10); RED CELL DISTRIBUTION WIDTH 14.3 % (11.5-14.5); WHITE BLOOD COUNT 9.9 X10'3 (4.5-11.0)
[2019-01-13 03:42] LABS: ALBUMIN 3.1 G/DL (3.4-5.0); ANION GAP 4 (8-16); BLOOD UREA NITROGEN 13 MG/DL (7-18); BUN/CREATININE RATIO 15.9 (5.4-32.0); CALCIUM 7.7 MG/DL (8.5-10.1); CHLORIDE 109 MMOL/L (99-107); CREATININE 0.82 MG/DL (0.60-1.10); GLUCOSE 119 MG/DL (70-104); MAGNESIUM 2.2 MG/DL (1.5-2.4); PHOSPHORUS 2.7 MG/DL (2.3-4.5); POTASSIUM 4.5 MMOL/L (3.5-5.1); SODIUM 141 MMOL/L (135-145); TOTAL CARBON DIOXIDE 28.2 MMOL/L (24-32); eGFR > 90 ML/MIN
[2019-01-13] MEDS: magnesium 2GM in 50ml NS 50 ML IV PRN (05:15)
[2019-01-13] MEDS: HYDROcodone/acetaminophen 10/325mg tab PO PRN ×4 (05:19→23:01)
[2019-01-13] MEDS: amiodarone/D5 360MG/200ML BAG 200 ML IV SCH ×2 (06:04)
--- NOTE | 2019-01-13 06:33 | NUR ---
Problems reprioritized. Patient report given, questions answered & plan of care reviewed with Brennon SWEENEY.
[2019-01-13] MEDS: metoprolol tartrate 12.5mg (1/2 tablet) PO SCH ×2 (08:13→20:58)
[2019-01-13] MEDS: pantoprazole 40mg Tablet.DR PO SCH (08:14)
[2019-01-13] MEDS: docusate sod 100mg capsule PO SCH ×2 (08:14→20:58)
[2019-01-13] MEDS: losartan 50mg tablet PO SCH ×2 (08:14→20:59)
[2019-01-13] MEDS: gabapentin 300mg capsule PO SCH (08:14)
[2019-01-13] MEDS: atorvastatin 10mg tablet PO SCH (08:15)
[2019-01-13] MEDS: mupirocin 2% nasal ointment 1gm UD NS SCH (08:15)
[2019-01-13] MEDS ORDERED: furosemide 40mg/4ml inj IV ONE (08:35)
[2019-01-13] MEDS: ondansetron/PF 4mg/2ml inj IV PRN (09:53)
[2019-01-13] MEDS: sodium chloride 0.45% 1,000 ML IV SCH (10:51)
[2019-01-13] MEDS: amiodarone 200mg tablet PO SCH ×2 (12:15→20:59)
[2019-01-13] MEDS ORDERED: potassium Cl 20 mEq SR tablet PO PRN ×2 (17:35)
[2019-01-13] MEDS ORDERED: magnesium 4gm in 100ml NS 100 ML IV PRN (17:35)
[2019-01-13] MEDS ORDERED: magnesium Cl slow-release 64mg tablet PO PRN (17:35)
[2019-01-13] MEDS ORDERED: potassium CL 10mEq/100ml bag 100 ML IV PRN ×2 (17:35)
[2019-01-13] MEDS ORDERED: magnesium 2GM in 50ml NS 50 ML IV PRN (17:35)
--- NOTE | 2019-01-13 18:30 | NUR ---
Patient in room ICU 2045. I have received report from Brennon SWEENEY and had the opportunity to ask questions and assume patient care.
[2019-01-13] MEDS: potassium Cl 20 mEq SR tablet PO SCH (20:00)
[2019-01-13] MEDS: magnesium Cl slow-release 64mg tablet PO SCH (20:00)
[2019-01-13] MEDS: cyclobenzaprine 10mg tablet PO PRN (20:59)
--- NOTE | 2019-01-13 23:00 | NUR ---
Pt. noted sudden rhythm change to Atrial Fibrillation w/RVR in 130s-150s. Noted rhythm in and out of SR in the 70s-80s. Dr. Gomez notified of this rhythm change. No new orders given at this time, will cont. to monitor.
[2019-01-14] VITALS (24 sets, daily range): BP systolic 98–147; BP diastolic 42–89
[2019-01-14] MEDS: HYDROcodone/acetaminophen 10/325mg tab PO PRN ×3 (02:57→19:52)
--- NOTE | 2019-01-14 03:00 | NUR ---
Pt's cardiac rhythm conts. to change from SR w/PACs in the 70s to Atrial Fib w/RVR in the 140s. Will cont. to monitor.
[2019-01-14 05:55] LABS: BASOPHILS % (AUTO) 0.2 % (0-1); EOSINOPHILS # (AUTO) 0.1 X10'3 (0-0.9); EOSINOPHILS % (AUTO) 1.7 % (0-6); HEMATOCRIT 33.8 % (42.0-52.0); HEMOGLOBIN 11.4 g/dl (14.0-17.9); LYMPHOCYTES # (AUTO) 0.6 X10'3 (1.1-4.8); LYMPHOCYTES % (AUTO) 7.1 % (21-51); MEAN CORPUSCULAR HEMOGLOBIN 28.6 PG (27.0-31.0); MEAN CORPUSCULAR HGB CONC 33.7 g/dL (33.0-36.5); MEAN CORPUSCULAR VOLUME 84.7 FL (78-98); MONOCYTES # (AUTO) 0.9 X10'3 (0-0.9); MONOCYTES % (AUTO) 10.5 % (2-12); NEUTROPHILS # (AUTO) 6.6 X10'3 (1.8-7.7); NEUTROPHILS % (AUTO) 80.5 % (42-75); PLATELET COUNT 132 X10'3 (140-440); RED BLOOD COUNT 3.99 X10'6 (4.70-6.10); RED CELL DISTRIBUTION WIDTH 14.1 % (11.5-14.5); WHITE BLOOD COUNT 8.2 X10'3 (4.5-11.0)
[2019-01-14 06:10] LABS: ALBUMIN 2.9 G/DL (3.4-5.0); ANION GAP 3 (8-16); BLOOD UREA NITROGEN 11 MG/DL (7-18); BUN/CREATININE RATIO 12.9 (5.4-32.0); CALCIUM 8.2 MG/DL (8.5-10.1); CHLORIDE 108 MMOL/L (99-107); CREATININE 0.85 MG/DL (0.60-1.10); GLUCOSE 108 MG/DL (70-104); MAGNESIUM 1.8 MG/DL (1.5-2.4); POTASSIUM 4.4 MMOL/L (3.5-5.1); SODIUM 142 MMOL/L (135-145); TOTAL CARBON DIOXIDE 31.2 MMOL/L (24-32); eGFR 90 ML/MIN
--- NOTE | 2019-01-14 06:29 | NUR ---
Problems reprioritized. Patient report given, questions answered & plan of care reviewed with Brennon SWEENEY.
[2019-01-14] MEDS: K and/or MAG REPLACEMENT MC SCH (08:00)
[2019-01-14] MEDS: potassium Cl 20 mEq SR tablet PO SCH ×2 (08:00→19:49)
[2019-01-14] MEDS: amiodarone 200mg tablet PO SCH ×3 (08:24→21:03)
[2019-01-14] MEDS: aspirin 81mg tablet.DR PO SCH (08:24)
[2019-01-14] MEDS: losartan 50mg tablet PO SCH (08:24)
[2019-01-14] MEDS: docusate sod 100mg capsule PO SCH ×2 (08:24→19:48)
[2019-01-14] MEDS: atorvastatin 10mg tablet PO SCH (08:25)
[2019-01-14] MEDS: pantoprazole 40mg Tablet.DR PO SCH (08:25)
[2019-01-14] MEDS: magnesium Cl slow-release 64mg tablet PO SCH ×2 (08:25→19:49)
[2019-01-14] MEDS: metoprolol tartrate 12.5mg (1/2 tablet) PO SCH (08:25)
[2019-01-14] MEDS ORDERED: magnesium 2GM in 50ml NS 50 ML IV ONE (08:45)
[2019-01-14] MEDS ORDERED: metoprolol tartrate 1mg/ml inj IV ONE ×2 (08:50→08:53)
[2019-01-14] MEDS ORDERED: amiodarone 150mg/dext, iso-os 100 ML IV ONE (09:50)
[2019-01-14] MEDS ORDERED: magnesium hydroxide 30ml (MOM) UD suspension PO ONE (10:25)
--- NOTE | 2019-01-14 18:30 | NUR ---
Patient in room ICU 2045. I have received report from Daniel SWEENEY and had the opportunity to ask questions and assume patient care.
[2019-01-14] MEDS: metoprolol tartrate 50mg tablet PO SCH (19:50)
[2019-01-14] MEDS: losartan 25mg tablet PO SCH (20:00)
[2019-01-14] MEDS: cyclobenzaprine 10mg tablet PO PRN (21:07)
[2019-01-15] VITALS (16 sets, daily range): BP systolic 104–146; BP diastolic 53–83
[2019-01-15] MEDS: HYDROcodone/acetaminophen 10/325mg tab PO PRN (02:47)
[2019-01-15 06:14] LABS: BASOPHILS % (AUTO) 0.2 % (0-1); EOSINOPHILS # (AUTO) 0.3 X10'3 (0-0.9); EOSINOPHILS % (AUTO) 5.2 % (0-6); HEMATOCRIT 34.2 % (42.0-52.0); HEMOGLOBIN 11.5 g/dl (14.0-17.9); LYMPHOCYTES # (AUTO) 0.5 X10'3 (1.1-4.8); MEAN CORPUSCULAR HEMOGLOBIN 28.3 PG (27.0-31.0); MEAN CORPUSCULAR HGB CONC 33.5 g/dL (33.0-36.5); MEAN CORPUSCULAR VOLUME 84.6 FL (78-98); MEAN PLATELET VOLUME 8.3 FL (7.4-10.4); MONOCYTES # (AUTO) 0.6 X10'3 (0-0.9); NEUTROPHILS # (AUTO) 5.3 X10'3 (1.8-7.7); NEUTROPHILS % (AUTO) 78.6 % (42-75); PLATELET COUNT 146 X10'3 (140-440); RED BLOOD COUNT 4.04 X10'6 (4.70-6.10); WHITE BLOOD COUNT 6.7 X10'3 (4.5-11.0)
[2019-01-15 06:21] LABS: ALBUMIN 2.8 G/DL (3.4-5.0); ANION GAP 5 (8-16); BLOOD UREA NITROGEN 10 MG/DL (7-18); BUN/CREATININE RATIO 15.2 (5.4-32.0); CALCIUM 8.2 MG/DL (8.5-10.1); CHLORIDE 106 MMOL/L (99-107); CREATININE 0.66 MG/DL (0.60-1.10); GLUCOSE 104 MG/DL (70-104); MAGNESIUM 1.9 MG/DL (1.5-2.4); POTASSIUM 4.2 MMOL/L (3.5-5.1); SODIUM 141 MMOL/L (135-145); TOTAL CARBON DIOXIDE 29.9 MMOL/L (24-32); eGFR > 90 ML/MIN
--- NOTE | 2019-01-15 06:22 | NUR ---
Problems reprioritized. Patient report given, questions answered & plan of care reviewed with Daniel SWEENEY.
[2019-01-15] MEDS: losartan 25mg tablet PO SCH ×2 (07:34→20:36)
[2019-01-15] MEDS: metoprolol tartrate 50mg tablet PO SCH ×2 (07:35→20:35)
[2019-01-15] MEDS: pantoprazole 40mg Tablet.DR PO SCH (07:35)
[2019-01-15] MEDS: docusate sod 100mg capsule PO SCH ×2 (07:35→20:36)
[2019-01-15] MEDS: atorvastatin 10mg tablet PO SCH (07:35)
[2019-01-15] MEDS: amiodarone 200mg tablet PO SCH ×3 (07:35→20:36)
[2019-01-15] MEDS: magnesium Cl slow-release 64mg tablet PO SCH ×2 (07:35→20:35)
[2019-01-15] MEDS: K and/or MAG REPLACEMENT MC SCH (07:36)
[2019-01-15] MEDS: potassium Cl 20 mEq SR tablet PO SCH ×2 (07:36→20:36)
[2019-01-15] MEDS: aspirin 81mg tablet.DR PO SCH (07:36)
[2019-01-15] MEDS: HYDROcodone/acetaminophen 5mg/325mg tablet PO PRN ×3 (09:11→20:37)
--- NOTE | 2019-01-15 09:51 | NUR ---
Received report from Jennifer in U.
--- NOTE | 2019-01-15 10:25 | NUR ---
Received report from Jaocb SWEENEY in cath lab radiological technologist.
--- NOTE | 2019-01-15 11:22 | NUR ---
Received report from Daniel CISCO C[employer]IED NETWORK ASSOCIATE at this time. Awaiting patient's arrival to room 314 on [facility].
--- NOTE | 2019-01-15 11:26 | NUR ---
CABG Consult: Pt seen by DAVID for written/verbal CABG ed w/ RD contact information provided. Declines additional proteins at this time. LBM 01/09 receiving colace routine and MoM today. Will continue to monitor. Addendum: 01/15/19 at [address] Amended: Links added.
--- NOTE | 2019-01-15 11:47 | NUR ---
patient transferred to [place] report given to marie
[2019-01-15] MEDS ORDERED: potassium Cl 20mEq/100mL bag 100 ML IV PRN (17:25)
[2019-01-15] MEDS ORDERED: potassium Cl 20 mEq SR tablet PO PRN (17:25)
[2019-01-15] MEDS ORDERED: magnesium 2GM in 50ml NS 50 ML IV PRN (17:25)
[2019-01-15] MEDS ORDERED: magnesium 4gm in 100ml NS 100 ML IV PRN (17:25)
--- NOTE | 2019-01-15 18:10 | NUR ---
Patient in room MED 316. I have received report from Mallory SWEENEY and had the opportunity to ask questions and assume patient care.
--- NOTE | 2019-01-15 18:15 | NUR ---
Problems reprioritized. Patient report given, questions answered & plan of care reviewed with Bria SWEENEY.
--- NOTE | 2019-01-15 23:44 | NUR ---
PATIENT HAD SHORT BURST OF AFIB WITH RATES IN 110'S. BP STABLE. PATIENT DID NOT EXPERIENCE ANY S/S. WILL CONTINUE TO MONITOR.
[2019-01-16 03:00] VITALS: BP 135/65
[2019-01-16 05:34] LABS: ALBUMIN 2.9 G/DL (3.4-5.0); ANION GAP 5 (8-16); BLOOD UREA NITROGEN 10 MG/DL (7-18); BUN/CREATININE RATIO 11.9 (5.4-32.0); CALCIUM 8.5 MG/DL (8.5-10.1); CHLORIDE 106 MMOL/L (99-107); CREATININE 0.84 MG/DL (0.60-1.10); GLUCOSE 114 MG/DL (70-104); MAGNESIUM 2.2 MG/DL (1.5-2.4); POTASSIUM 4.3 MMOL/L (3.5-5.1); SODIUM 141 MMOL/L (135-145); TOTAL CARBON DIOXIDE 30.4 MMOL/L (24-32); eGFR > 90 ML/MIN
[2019-01-16 06:06] LABS: BASOPHILS % (AUTO) 0.2 % (0-1); EOSINOPHILS # (AUTO) 0.6 X10'3 (0-0.9); EOSINOPHILS % (AUTO) 8.8 % (0-6); HEMATOCRIT 35.5 % (42.0-52.0); HEMOGLOBIN 12.1 g/dl (14.0-17.9); LYMPHOCYTES # (AUTO) 0.6 X10'3 (1.1-4.8); LYMPHOCYTES % (AUTO) 8.1 % (21-51); MEAN CORPUSCULAR HEMOGLOBIN 28.2 PG (27.0-31.0); MEAN CORPUSCULAR HGB CONC 33.9 g/dL (33.0-36.5); MEAN CORPUSCULAR VOLUME 83.1 FL (78-98); MEAN PLATELET VOLUME 7.7 FL (7.4-10.4); MONOCYTES # (AUTO) 0.8 X10'3 (0-0.9); NEUTROPHILS # (AUTO) 4.8 X10'3 (1.8-7.7); NEUTROPHILS % (AUTO) 70.9 % (42-75); PLATELET COUNT 187 X10'3 (140-440); RED BLOOD COUNT 4.28 X10'6 (4.70-6.10); RED CELL DISTRIBUTION WIDTH 13.8 % (11.5-14.5); WHITE BLOOD COUNT 6.8 X10'3 (4.5-11.0)
--- NOTE | 2019-01-16 06:29 | NUR ---
Problems reprioritized. Patient report given, questions answered & plan of care reviewed with Ld SWEENEY.
[2019-01-16 07:04] VITALS: BP 149/68
[2019-01-16] MEDS: losartan 25mg tablet PO SCH (07:29)
[2019-01-16] MEDS: amiodarone 200mg tablet PO SCH (07:29)
[2019-01-16] MEDS: aspirin 81mg tablet.DR PO SCH (07:30)
[2019-01-16] MEDS: potassium Cl 20 mEq SR tablet PO SCH (07:30)
[2019-01-16] MEDS: atorvastatin 10mg tablet PO SCH (07:31)
[2019-01-16 07:32] VITALS: BP_SYST 149
[2019-01-16] MEDS ORDERED: ATOR10TA PO (07:32)
[2019-01-16] MEDS ORDERED: COL100C PO (07:32)
[2019-01-16] MEDS ORDERED: AMIO200T61 PO (07:32)
[2019-01-16] MEDS ORDERED: HYDR-4383 PO (07:32)
[2019-01-16] MEDS ORDERED: METO50TA16 PO (07:32)
[2019-01-16] MEDS: metoprolol tartrate 50mg tablet PO SCH (07:32)
[2019-01-16] MEDS: docusate sod 100mg capsule PO SCH (07:32)
[2019-01-16] MEDS: pantoprazole 40mg Tablet.DR PO SCH (07:32)
[2019-01-16] MEDS: K and/or MAG REPLACEMENT MC SCH (08:00)
[2019-01-16] MEDS: magnesium Cl slow-release 64mg tablet PO SCH (08:24)
--- NOTE | 2019-01-16 09:37 | NUR ---
[facility]. Can someone call me about this pt's discharge. Thank You.
[2019-01-16] MEDS: HYDROcodone/acetaminophen 5mg/325mg tablet PO PRN (10:19)
== END 2019-01-16 10:20 | disposition home health service (06) | DRG 234 ==
LOC: SSTAY O 13:51 → MED 3N 20:15 → ICU 2S 01-11 10:17 → MED 3N 01-15 12:21
PROVIDERS: ADMIT Internal Medicine; ATTEND Thoracic Surgery (Cardiothoracic Vascular Surgery)
PROC: 4A023N7 Measurement of Cardiac Sampling and Pressure, Left Heart, Percutaneous Approach (ICD-10-PCS; 2019-01-09)
PROC: B2111ZZ Fluoroscopy of Multiple Coronary Arteries using Low Osmolar Contrast (ICD-10-PCS; 2019-01-09)
PROC: B2151ZZ Fluoroscopy of Left Heart using Low Osmolar Contrast (ICD-10-PCS; 2019-01-09)
PROC: 02HV33Z Insertion of Infusion Device into Superior Vena Cava, Percutaneous Approach (ICD-10-PCS; 2019-01-10)
PROC: 4A133B3 Monitoring of Arterial Pressure, Pulmonary, Percutaneous Approach (ICD-10-PCS; 2019-01-10)
PROC: 02HQ32Z Insertion of Monitoring Device into Right Pulmonary Artery, Percutaneous Approach (ICD-10-PCS; 2019-01-10)
PROC: 021209W Bypass Coronary Artery, Three Arteries from Aorta with Autologous Venous Tissue, Open Approach (ICD-10-PCS; 2019-01-11)
PROC: 06BQ4ZZ Excision of Left Saphenous Vein, Percutaneous Endoscopic Approach (ICD-10-PCS; 2019-01-11)
PROC: B24BZZ4 Ultrasonography of Heart with Aorta, Transesophageal (ICD-10-PCS; 2019-01-11)
PROC: 02L70CK Occlusion of Left Atrial Appendage with Extraluminal Device, Open Approach (ICD-10-PCS; 2019-01-11)
PROC: 5A1221Z Performance of Cardiac Output, Continuous (ICD-10-PCS; 2019-01-11)
PROC: 02100Z9 Bypass Coronary Artery, One Artery from Left Internal Mammary, Open Approach (ICD-10-PCS; principal; 2019-01-11 06:39)
DX: I25.110 Atherosclerotic heart disease of native coronary artery with unstable angina pectoris (principal); I31.3 Pericardial effusion (noninflammatory); I10 Essential (primary) hypertension; K21.0 Gastro-esophageal reflux disease with esophagitis; E78.5 Hyperlipidemia, unspecified; E66.9 Obesity, unspecified; I48.0 Paroxysmal atrial fibrillation; K59.00 Constipation, unspecified; Z79.899 Other long term (current) drug therapy; Z85.828 Personal history of other malignant neoplasm of skin; Z87.891 Personal history of nicotine dependence; Z88.0 Allergy status to penicillin; Z88.2 Allergy status to sulfonamides; Z88.1 Allergy status to other antibiotic agents; Z79.82 Long term (current) use of aspirin; Z90.49 Acquired absence of other specified parts of digestive tract; Z68.31 Body mass index [BMI] 31.0-31.9, adult
CPT/HCPCS: 0232T; 93312; 93325; 93458; Z7506; Z7508; 36415; 36600; 71045; 71046; 80048; 80053; 80061; 82330; 82435; 82803; 82947; 82948; 83036; 83735; 84100; 84132; 84295; 85018; 85025; 85027; 85347; 85384; 85610; 85730; 86885; 86900; 86901; 86920; 87081; 93005; 93880; 93970; 94002; 94010; 94760; 97110; 97116; 97162; 97530; 99152; A4618; A4620; A6258; A6402; A6446; A6449; A7000; A7048; C1713; C1751; C1769; C9113; G0378; J0131; J0132; J0282; J0690; J1644; J1815; J1885; J1940; J2001; J2060; J2150; J2250; J2270; J2370; J2405; J2440; J2704; J2720; J2795; J2930; J3010; J3370; J3475; J3480; J3490; J7030; J7040; J7050; J7060; J7120; P9045; P9047; Q0163; Q9967

== ENCOUNTER 2019-06-17 16:44 | Emergency (ER) | payer BC, MEDICARE ==
[~2019-06-17] VITALS: Ht 175.3 cm; Wt 99.0 kg
[~2019-06-17 16:44] MED LIST changes: +AMIO200T61 PO; -AMLO10TA PO; +ASPI81TA52 PO; +ATOR10TA PO; +COL100C PO; -ESOM20CA PO; +HYDR-4383 PO; +METO50TA16 PO; -MONT10TA24 PO
[2019-06-17 17:30] LABS: HEMATOCRIT 42.2 % (42.0-52.0); MEAN PLATELET VOLUME 7.7 FL (7.4-10.4); PLATELET COUNT 196 X10'3 (140-440); RED BLOOD COUNT 5.14 X10'6 (4.70-6.10)
[2019-06-17 17:33] LABS: BASOPHILS # (AUTO) 0.1 X10'3 (0-0.2); EOSINOPHILS # (AUTO) 0.7 X10'3 (0-0.9); EOSINOPHILS % (AUTO) 10.2 % (0-6); HEMOGLOBIN 14.5 g/dl (14.0-17.9); LYMPHOCYTES # (AUTO) 1.1 X10'3 (1.1-4.8); MEAN CORPUSCULAR HEMOGLOBIN 28.2 PG (27.0-31.0); MEAN CORPUSCULAR HGB CONC 34.4 g/dL (33.0-36.5); MONOCYTES # (AUTO) 0.8 X10'3 (0-0.9); MONOCYTES % (AUTO) 11.4 % (2-12); NEUTROPHILS # (AUTO) 4.2 X10'3 (1.8-7.7); NEUTROPHILS % (AUTO) 61.4 % (42-75); RED CELL DISTRIBUTION WIDTH 14.8 % (11.5-14.5); WHITE BLOOD COUNT 6.9 X10'3 (4.5-11.0)
[2019-06-17 17:50] LABS: ALANINE AMINOTRANSFERASE 31 U/L (12-78); ALBUMIN 3.9 G/DL (3.4-5.0); ALBUMIN/GLOBULIN RATIO 1.2 (1.1-1.5); ALKALINE PHOSPHATASE 107 IU/L (46-116); ANION GAP 10 (8-16); ASPARTATE AMINO TRANSFERASE 16 U/L (10-37); BILIRUBIN,TOTAL 0.6 MG/DL (0.1-1.0); BLOOD UREA NITROGEN 18 MG/DL (7-18); BUN/CREATININE RATIO 23.1 (5.4-32.0); CALCIUM 8.7 MG/DL (8.5-10.1); CHLORIDE 107 MMOL/L (99-107); CREATININE 0.78 MG/DL (0.60-1.10); GLUCOSE 85 MG/DL (70-104); POTASSIUM 3.7 MMOL/L (3.5-5.1); SODIUM 143 MMOL/L (135-145); TOTAL CARBON DIOXIDE 26.4 MMOL/L (24-32); TOTAL PROTEIN 7.2 G/DL (6.4-8.2); eGFR > 90 ML/MIN
[2019-06-17] MEDS ORDERED: ONDA8TAB13 PO (21:12)
[2019-06-17] MEDS ORDERED: ondansetron 4mg rapidly disintigrating tab PO ONE (21:20)
[2019-06-17 21:28] VITALS: BP 140/77
== END 2019-06-17 21:31 | disposition home or self-care (01) ==
LOC: ER 16:44
DX: R07.89 Other chest pain (principal); R06.02 Shortness of breath; R53.1 Weakness; R10.13 Epigastric pain; I48.91 Unspecified atrial fibrillation; I25.10 Atherosclerotic heart disease of native coronary artery without angina pectoris; E78.00 Pure hypercholesterolemia, unspecified; Z98.84 Bariatric surgery status; Z98.890 Other specified postprocedural states; Z88.0 Allergy status to penicillin; Z88.2 Allergy status to sulfonamides; Z88.1 Allergy status to other antibiotic agents; Z79.82 Long term (current) use of aspirin; Z79.899 Other long term (current) drug therapy
CPT/HCPCS: 36415; 71045; 80053; 84484; 85025; 93005; 99284

== ENCOUNTER 2019-12-25 05:30 | Day surgery (SDC) | payer BC, MEDICARE ==
[2019-12-15 14:30] LABS: CLARITY,URINE CLEAR (Clear); COLOR,URINE YELLOW (Yellow); GLUCOSE, URINE NEGATIVE (Neg); KETONES,URINE NEGATIVE (Neg); LEUKOCYTE ESTERASE ,URINE NEGATIVE (Neg); NITRITES, URINE NEGATIVE (Neg); OCCULT BLOOD,URINE TRACE-LYSED (Neg); PH,URINE 5.5 (4.8-8.0); PROTEIN,URINE NEGATIVE (Neg)
[2019-12-15 14:30] LABS: BASOPHILS % (AUTO) 0.3 % (0-1); EOSINOPHILS # (AUTO) 0.3 X10'3 (0-0.9); EOSINOPHILS % (AUTO) 2.9 % (0-6); LYMPHOCYTES # (AUTO) 0.9 X10'3 (1.1-4.8); MEAN CORPUSCULAR HGB CONC 33.5 g/dL (33.0-36.5); MEAN CORPUSCULAR VOLUME 86.6 FL (78-98); MEAN PLATELET VOLUME 7.8 FL (7.4-10.4); MONOCYTES # (AUTO) 0.8 X10'3 (0-0.9); MONOCYTES % (AUTO) 9.2 % (2-12); NEUTROPHILS # (AUTO) 6.7 X10'3 (1.8-7.7); NEUTROPHILS % (AUTO) 77.6 % (42-75); PRE OP HEMATOCRIT 45.5 % (42.0-52.0); PRE OP HEMOGLOBIN 15.2 g/dL (14.0-17.9); PRE OP PLATELET COUNT 192 X10'3 (140-440); RED BLOOD COUNT 5.25 X10'6 (4.70-6.10); RED CELL DISTRIBUTION WIDTH 14.5 % (11.5-14.5)
[2019-12-15 14:35] LABS: UA COLLECTION TYPE NON-SPECIFIED
[2019-12-15 14:37] LABS: BACTERIA,URINE NONE SEEN /HPF (Neg); HYALINE CASTS 0-3 /LPF (NEGATIVE); MUCUS STRANDS FEW /LPF (Neg); RBC,URINE 0-2 /HPF (0-2); SQUAMOUS EPITHELIAL CELL,UR NONE SEEN /LPF (FEW); WBC,URINE 0-4 /HPF (0-4)
[2019-12-15 14:41] LABS: ALBUMIN 3.9 G/DL (3.4-5.0); ALBUMIN/GLOBULIN RATIO 1.1 (1.1-1.5); ALKALINE PHOSPHATASE 89 IU/L (46-116); BLOOD UREA NITROGEN 19 MG/DL (7-18); BUN/CREATININE RATIO 21.1 (5.4-32.0); CALCIUM 8.9 MG/DL (8.5-10.1); CHLORIDE 106 MMOL/L (99-107); PRE OP ALT 29 U/L (30-65); PRE OP ANION GAP 6 (8-16); PRE OP AST 13 U/L (10-37); PRE OP GLUCOSE 90 MG/DL (70-104); PRE OP PROTIME 10.6 SECONDS (9.0-12.0); PRE OP SODIUM 143 MMOL/L (135-145); TOTAL CARBON DIOXIDE 31.1 MMOL/L (24-32); TOTAL PROTEIN 7.4 G/DL (6.4-8.2); eGFR 84 ML/MIN
[2019-12-25] VITALS (10 sets, daily range): BP systolic 124–150; BP diastolic 65–81
[~2019-12-25] VITALS: Ht 175.3 cm; Wt 99.0 kg
[~2019-12-25 05:30] MED LIST changes: +ACET-2119 PO; -AMIO200T61 PO; +AMLO2.5T2 PO; -ASPI81TA52 PO; -ATOR10TA PO; +ATOR40TA PO; +CHOL20004 PO; -COL100C PO; +FAMO10TA41 PO; -HYDR-4383 PO; +IBUP-1984 PO; +LICO1POW2 PO; -METO50TA16 PO; +MILK1CAP3 PO; +MULT-1085 PO; +SLIPPERY ELM PO; +famotidine 20mg tablet PO ONE; +ringers solution, lacted 1,000 ML IV SCH
[2019-12-25] MEDS ORDERED: LIDOcaine 1% (10mg/ml) 2ml vial ONE (05:45)
[2019-12-25] MEDS ORDERED: ceFAZolin 2gm in dextrose, iso 50 ML IV ONE (06:00)
[2019-12-25] MEDS ORDERED: gabapentin 400mg capsule PO ONE (06:00)
[2019-12-25] MEDS ORDERED: mupirocin 2% nasal ointment 1gm UD NS ONE (06:00)
[2019-12-25] MEDS ORDERED: ceFAZolin 1000mg inj ONE (06:56)
[2019-12-25] MEDS ORDERED: LIDOcaine 1% 30ml preserv. free vial ONE (06:56)
[2019-12-25] MEDS ORDERED: BUPIVAcaine/PF 2.5 mg/ml (0.25%) 30ml vial ONE (07:05)
[2019-12-25] MEDS ORDERED: propofol inj 20 ML IV ONE (07:11)
[2019-12-25] MEDS ORDERED: rocuronium 10mg/ml inj IV ONE (07:11)
[2019-12-25] MEDS ORDERED: fentaNYL /PF 50mcg/ml 5ml ampule ONE (07:11)
[2019-12-25] MEDS ORDERED: midazolam 2 mg/2 ml injection ONE (07:11)
[2019-12-25] MEDS ORDERED: LIDOcaine 2% (20mg/ml) 5ml vial ONE (07:11)
[2019-12-25] MEDS ORDERED: meperidine/PF 25mg/ml syringe IV PRN ×2 (07:15)
[2019-12-25] MEDS ORDERED: morphine 2 MG/ML inj. syringe IV PRN (07:15)
[2019-12-25] MEDS ORDERED: ringers solution, lacted 1,000 ML IV SCH (07:15)
[2019-12-25] MEDS ORDERED: ondansetron/PF 4mg/2ml inj IV PRN (07:15)
[2019-12-25] MEDS ORDERED: proCHLORperazine 10 MG/2 ml inj IV PRN (07:15)
[2019-12-25] MEDS ORDERED: morphine 4 MG/ML inj SYRINge IV PRN (07:15)
[2019-12-25] MEDS ORDERED: dexamethasone sod phosphate 10mg/ml inj ONE (07:20)
[2019-12-25] MEDS ORDERED: isoflurane 100ml inhalation liquid IH ONE (07:20)
[2019-12-25] MEDS ORDERED: acetaminophen 1,000mg/100ml IV 100 ML IV ONE (07:53)
[2019-12-25] MEDS ORDERED: ondansetron/PF 4mg/2ml inj ONE (07:56)
[2019-12-25] MEDS ORDERED: glycopyrrolate 0.2mg/ml inj ONE (08:05)
[2019-12-25] MEDS ORDERED: neostigmine methylsulfate 1 MG/ML 10ml vial ONE (08:05)
--- NOTE | 2019-12-25 08:13 | NUR ---
Received from OR via [facility], accompanied by Anesthesiologist VERENA and report given by Anesthesiolgist. Pt alert and responsive to questions. All VS WNL, mask to 10L. Sats 98%. 20G left forearm 100cc/hr LR IVF. Sternal wound with small island dresing very minor shadowing otherwise CDI.
[2019-12-25] MEDS: meperidine/PF 25mg/ml syringe IV PRN ×2 (08:51→09:02)
[2019-12-25] MEDS ORDERED: HYDROcodone/acetaminophen 5mg/325mg tablet PO ONE (09:20)
--- NOTE | 2019-12-25 09:53 | NUR ---
After patient ambulated, tolerated fluids and food, and had all belongings returned to him, pt discharged to vehicle by wheelchair without incident. Reviewed all DC instructions prior and again with , both verbalized understanding. Pt alert and oriented, IV dc'd. Wound covered and continued to be CDI on dressing. Pain script given to patient by MD prior to discharge.
== END 2019-12-25 09:53 | disposition home or self-care (01) ==
LOC: PAS 05:30
PROVIDERS: ATTEND Thoracic Surgery (Cardiothoracic Vascular Surgery)
DX: T84.84XA Pain due to internal orthopedic prosthetic devices, implants and grafts, initial encounter (principal); R07.89 Other chest pain; I10 Essential (primary) hypertension; E78.5 Hyperlipidemia, unspecified; K21.9 Gastro-esophageal reflux disease without esophagitis; I48.0 Paroxysmal atrial fibrillation; I25.10 Atherosclerotic heart disease of native coronary artery without angina pectoris; M19.90 Unspecified osteoarthritis, unspecified site; E66.9 Obesity, unspecified; Z68.32 Body mass index [BMI] 32.0-32.9, adult; Z11.59 Encounter for screening for other viral diseases; Z95.1 Presence of aortocoronary bypass graft; Z87.891 Personal history of nicotine dependence; Z79.899 Other long term (current) drug therapy; Z88.0 Allergy status to penicillin; Z88.2 Allergy status to sulfonamides; Z88.1 Allergy status to other antibiotic agents; Y83.8 Other surgical procedures as the cause of abnormal reaction of the patient, or of later complication, without mention of misadventure at the time of the procedure; Y92.89 Other specified places as the place of occurrence of the external cause
CPT/HCPCS: 20680; 36415; 71046; 71250; 80053; 81001; 82948; 85025; 85610; 85730; 93005; J0131; J0690; J1100; J2001; J2175; J2250; J2405; J2704; J2710; J3010; J3490; J7040; U0003; A4618; A6449; A7000; J7120

== ENCOUNTER 2025-05-09 10:57 | Outpatient (CLI) | payer MEDICARE ==
[~2025-05-09 10:57] MED LIST changes: -LOSA100T57 PO; +LOSA100T58 PO; -famotidine 20mg tablet PO ONE; -ringers solution, lacted 1,000 ML IV SCH
--- NOTE | 2025-05-09 12:17 | RADIOLOGY REPORT ---
EXAM: MR MRI LUMBAR SPINE CLINICAL HISTORY: LOW BACK PAIN;SPONDYLOSIS W/O MYELOPATHY OR RADICULOPATHY, LUMBAR REGION COMPARISON: None TECHNIQUE: MRI imaging of the lumbar was performed on a MRI imaging system without intravenous contrast. FINDINGS: For the purposes of this examination, the last well-formed intervertebral disc space will be designated as L5-S1. By this convention, the conus medullaris terminates at the L1-2 level. There is no acute displaced fracture. The alignment appears maintained. There is disc desiccation loss of intervertebral disc height most pronounced at L5-S1. There are modic type 2 degenerative endplate changes most pronounced at L5-S1. The spinal cord is unremarkable. The paraspinal soft tissues are unremarkable.At the T12-L1 level, there is no evidence of central spinal canal or neuroforaminal stenosis. At the L1-L2 level, there is no evidence of central spinal canal or neuroforaminal stenosis. At the L2-L3 level, a mild broad-based disc protrusion effaces the thecal sac. There is facet arthropathy and ligamentum flavum hypertrophy. There is no significant spinal canal or neural foraminal stenosis. At the L3-L4 level, a broad-based disc protrusion effaces the thecal sac. There is facet arthropathy and ligamentum flavum hypertrophy. There is no significant spinal canal or neural foraminal stenosis. At the L4-L5 level, a broad-based disc protrusion effaces the thecal sac and narrows the lateral recesses. There is facet arthropathy and ligamentum flavum hypertrophy. There is no significant spinal stenosis. There is borderline left neural foraminal stenosis. At the L5-S1 level, there is facet arthropathy. There is at least mild bilateral neural foraminal stenosis. IMPRESSION: 1. Mild degenerative changes of the lumbar spine as detailed.
== END 2025-05-09 23:59 | disposition home or self-care (01) ==
LOC: MRI02 10:57
PROVIDERS: ATTEND Physical Medicine & Rehabilitation
DX: M47.817 Spondylosis without myelopathy or radiculopathy, lumbosacral region (principal); M54.59 Other low back pain; M48.07 Spinal stenosis, lumbosacral region
CPT/HCPCS: 72148